=== PATIENT | male | born 1955 | race Caucasian/White ===

== ENCOUNTER 2022-06-11 10:34 | Emergency (ER) | payer BC ==
[~2022-06-11] VITALS: Ht 172.7 cm; Wt 104.3 kg
[2022-06-11] MEDS ORDERED: K-TAB ER20 MEQ PO (10:57)
[2022-06-11] MEDS ORDERED: BACTRIM DS TAB1 EACH PO (10:57)
[2022-06-11] MEDS ORDERED: CLONIDINE HCL0.1 M1 PO (10:57)
[2022-06-11] MEDS ORDERED: CEPHALEXIN500 M1 PO (13:10)
== END 2022-06-11 13:42 | disposition home or self-care (01) ==
LOC: ED 10:34
DX: L03.115 Cellulitis of right lower limb (principal); I10 Essential (primary) hypertension; Z79.899 Other long term (current) drug therapy
CPT/HCPCS: 36415; 80048; 85025; 96374; 99283-25; J0696